=== PATIENT | female | born 1970 | race Caucasian/White ===

== ENCOUNTER → 2016-11-15 | Outpatient (CLI) | payer BC ==
[2016-11-15 18:14] LABS: ALT 33 U/L (9-52); AST 23 U/L (14-36); Alkaline Phosphatase 61 U/L (38-126); Anion Gap 11 mmol/L; Blood Urea Nitrogen 12 mg/dL (7-17); Calcium 9.3 mg/dL (8.4-10.2); Carbon Dioxide 23 mmol/L (22-30); Chloride 107 mmol/L (98-107); Glucose 86 mg/dL (74-99); Non-African American GFR(MDRD) >60 (>60 ml/min/1.73 sqM); Potassium 4.5 mmol/L (3.5-5.1); Sodium 141 mmol/L (137-145); Total Bilirubin 0.3 mg/dL (0.2-1.3); Total Protein 6.7 g/dL (6.3-8.2)
[2016-11-15 19:34] LABS: Erythrocyte Sedimentation Rate 15 mm/hr (0-20)
[2016-11-15 19:57] LABS: Anisocytosis Slight; Basophils % (A) 0 %; CHCM 31.3; Eosinophils % (A) 1 %; HCT 30.9 % (34.0-46.0); HGB 9.8 gm/dL (11.4-16.0); Hypochromasia Slight; Luc % (Auto) 3; Lymphocytes # (A) 0.2 k/uL (1.0-4.8); Lymphocytes % (A) 5 %; MCH 27.6 pg (25.0-35.0); MCHC 31.9 g/dL (31.0-37.0); MCV 86.6 fL (80.0-100.0); Mean Platelet Volume 7.2; Monocytes # (A) 0.4 k/uL (0-1.0); Monocytes % (A) 12 %; Neutrophils # (A) 2.4 k/uL (1.3-7.7); Neutrophils % (A) 78 %; RBC 3.57 m/uL (3.80-5.40); RDW 16.2 % (11.5-15.5); WBC (Perox) 2.93
[2016-11-16 01:32] LABS: ANA w/Reflex to Titer NEGATIVE (NEGATIVE)
== END | disposition home or self-care (01) ==
LOC: LABWHC1 17:16
PROVIDERS: ATTEND Psychiatry & Neurology Neurology
DX: E55.9 Vitamin D deficiency, unspecified (principal); G35 Multiple sclerosis
CPT/HCPCS: 36415; 80053; 82306; 85025; 85652; 86038

== ENCOUNTER → 2017-03-09 | Outpatient (CLI) | payer OTHER ==
--- NOTE | 2017-03-09 15:54 | XR ---
EXAMINATION TYPE: XR shoulder complete LT DATE OF EXAM: 03/09/2017 CLINICAL HISTORY: Pain after fall injury one week ago. TECHNIQUE: Three views of the left shoulder are obtained. COMPARISON: None. FINDINGS: There is no acute fracture/dislocation evident in the left shoulder. The glenohumeral jodi nt spaces appear within normal limits. Some narrowing acromioclavicular joint is seen. There is sligh t superior displacement of inferior margin distal clavicle relative to acromion. The visualized ribs are intact and unremarkable. IMPRESSION: There is no acute fracture in the left shoulder. Cannot rule out left acromioclavicular joint subluxation or injury. Correlate clinically.
--- NOTE | 2017-03-09 15:56 | XR ---
EXAMINATION TYPE: XR thoracic spine complete DATE OF EXAM: 03/09/2017 CLINICAL HISTORY: Injury one week ago with mid back pain. TECHNIQUE: Frontal, lateral, and swimmer's view of thoracic spine are obtained. COMPARISON: None. FINDINGS: Osseous structures are demineralized. Thoracic spine show scoliotic curvature upper to mid thoracic spine alignment without evidence of acute fracture or dislocation. Vertebral body heights a nd disc space heights are preserved. Visualized ribs are unremarkable. IMPRESSION: No acute fracture or dislocation is seen in the thoracic spine.
== END | disposition home or self-care (01) ==
LOC: RADXRMAIN 15:34
PROVIDERS: ATTEND Emergency Medicine
DX: S43.492A Other sprain of left shoulder joint, initial encounter (principal); S23.3XXA Sprain of ligaments of thoracic spine, initial encounter
CPT/HCPCS: 72072

== ENCOUNTER → 2017-08-11 | Outpatient (CLI) | payer BC ==
[2017-08-11 17:38] LABS: Basophils % (A) 0 %; Eosinophils % (A) 1 %; HCT 36.2 % (34.0-46.0); Lymphocytes # (A) 0.1 k/uL (1.0-4.8); MCH 31.2 pg (25.0-35.0); MCHC 33.2 g/dL (31.0-37.0); Mean Platelet Volume 7.2; Monocytes # (A) 0.3 k/uL (0-1.0); Monocytes % (A) 14 %; Neutrophils # (A) 1.8 k/uL (1.3-7.7); Neutrophils % (A) 74 %; Platelet Count 292 k/uL (150-450); RBC 3.85 m/uL (3.80-5.40)
[2017-08-11 18:04] LABS: Lymphocytes % (A) 6 %; WBC 2.4 k/uL (3.8-10.6)
== END | disposition home or self-care (01) ==
LOC: LABWHC1 17:06
PROVIDERS: ATTEND Obstetrics & Gynecology
DX: Z01.818 Encounter for other preprocedural examination (principal)
CPT/HCPCS: 36415; 85025

== ENCOUNTER 2017-08-16 06:25 | Day surgery (SDC) | payer BC, OTHER ==
[2017-08-15 14:15] VITALS: BMI 21.9
--- NOTE | 2017-08-15 16:22 | P.HPOB ---
History of Present Illness H&P Date: 08/15/17 Chief Complaint: Menorrhagia with irregular cycle This is a 47-year-old female, 3, para 2, who presents for dilatation and curettage with hysteroscopy and Novasure endometrial ablation due to heavy irregular menses. They have been worsening over the last 2 years. Her menses are 21-28 days apart and last 6-7 days with cramping and large clots. Has to change tampon and pad every couple hours. Her pelvic US showed uterus 7.7 x 4.4 x 4.1 cm with anterior fibroid measuring 1.2 cm. Endometrium was 5 mm. Both ovaries appeared normal. OB Hx: . History of 2 vaginal deliveries and 1 miscarriage. Escrow Processor Hx: No hx STDs. Currently using condoms for control. Social Hx: . Teacher. Review of Systems Constitutional: Reports night sweats (before menses), Denies chills, Denies fever Eyes: denies blurred vision, denies pain Ears, nose, mouth and throat: Denies headache, Denies sore throat Cardiovascular: Denies chest pain, Denies shortness of breath Respiratory: Denies cough Gastrointestinal: Denies abdominal pain, Denies diarrhea, Denies nausea, Denies vomiting Genitourinary: Reports dysmenorrhea, Reports menorrhagia, Reports stress incontinence, Denies dysuria, Denies hematuria Menstruation: Reports menses variable, Reports period heavy Musculoskeletal: Denies myalgias Integumentary: Denies pruritus, Denies rash Neurological: Denies numbness, Denies weakness Psychiatric: Denies anxiety, Denies depression Endocrine: Denies fatigue, Denies weight change Past Medical History Past Medical History: No Reported History Additional Past Medical History / Comment(s): Menorrhagia History of Any Multi-Drug Resistant Organisms: None Reported Additional Past Surgical History / Comment(s): D&C Past Anesthesia/Blood Transfusion Reactions: No Reported Reaction Past Psychological History: No Psychological Hx Reported Smoking Status: Never smoker Past Alcohol Use History: Occasional Past Drug Use History: None Reported - Past Family History Mother Additional Family Medical History / Comment(s): Osteoporosis Father Family Medical History: Hyperlipidemia, Hypertension Medications and Allergies Home Medications Medication Instructions Recorded Confirmed Type No Known Home Medications [No 08/15/17 08/15/17 History Known Home Medications] Allergies Allergy/AdvReac Type Severity Reaction Status Date / Time No Known Allergies Allergy Verified 08/15/17 14:10 Exam Osteopathic Statement: *. No significant issues noted on an osteopathic structural exam other than those noted in the History and Physical/Consult. - Vital Signs Vital signs: Intake and Output 08/15/17 08/15/17 08/15/17 06:59 14:59 22:59 Other: Weight 58.06 kg HEENT: within normal limits Heart: regular rate and rhythm Lungs: clear to ausculation bilaterally Heart: regular rate and rhythm Abdomen: soft, non-tender Pelvic: uterus anteverted, non-tender, slightly nodular, with no adnexal masses or tenderness Extremities: neg Isis's Assessment and Plan (1) Menorrhagia with irregular cycle Status: Acute Code(s): N92.1 - EXCESSIVE AND FREQUENT MENSTRUATION WITH IRREGULAR CYCLE SNOMED Code(s): 363614757 Plan: Proceed with dilatation and curettage with hysteroscopy and Novasure endometrial ablation. I have discussed the risks, benefits, and alternative therapies for the above- mentioned procedure and for both sedation/anesthesia as well as necessary blood products administration, if indicated, as they pertain to this patient. The patient has indicated her understanding and acceptance of the risks and procedures discussed.
[~2017-08-16 06:25] MED LIST: DEXAMETHASONE SOD PHOSPHATE 10 MG/ML 1 ML VIAL IV ONE; LACTATED RINGERS 1,000 ML IV SCH; MIDAZOLAM 2 MG/2 ML VIAL IV PRN; ONDANSETRON ODT 4 MG TAB PO ONE; Pre Op ABX Message 1 EACH MISC MISCELLANE ONE; SCOPOLAMINE 1.5MG/72HR PATCH TRANSDERM ONE
[2017-08-16] MEDS ORDERED: LIDOCAINE 1% 20 ML VIAL (10MG/ML) FOR IV START INTRADERMA ONE (06:50)
[2017-08-16] MEDS ORDERED: ONDANSETRON 4 MG/2 ML VIAL IVP ONE (07:00)
[2017-08-16] MEDS ORDERED: fentaNYL (PF) 50 MCG/ML 2 ML AMP ONE (07:28)
[2017-08-16] MEDS ORDERED: SUCCINYLCHOLINE CHLORIDE 100 MG/5 ML SYR IV ONE (07:28)
[2017-08-16] MEDS ORDERED: PROPOFOL 10 MG/ML 20 ML VIAL IV ONE (07:28)
[2017-08-16] MEDS ORDERED: KETOROLAC 30 MG/ML 1 ML VIAL ONE (07:28)
[2017-08-16] MEDS ORDERED: NEOSTIGMINE 1 MG/ML 10 ML VIAL ONE (07:28)
[2017-08-16] MEDS ORDERED: GLYCOPYRROLATE 0.2 MG/ML 2 ML VIAL ONE (07:28)
[2017-08-16] MEDS ORDERED: ROCURONIUM BROMIDE 10 MG/ML 10 ML VIAL IV ONE (07:28)
[2017-08-16] MEDS ORDERED: LIDOCAINE 1% INJ 10MG/ML (20 ML MDV) ONE (07:28)
[2017-08-16] MEDS ORDERED: MIDAZOLAM 2 MG/2 ML VIAL ONE (07:28)
[2017-08-16] MEDS ORDERED: LACTATED RINGERS 1,000 ML IV ONE (08:02)
[2017-08-16] MEDS ORDERED: BUPIVACAINE (PF) 0.25% 30 ML VIAL SQ ONE ×2 (08:02)
--- NOTE | 2017-08-16 08:28 | P.OP ---
Date of Procedure: 08/16/17 Preoperative Diagnosis: Menorrhagia with irregular cycle Family planning Postoperative Diagnosis: Same Procedure(s) Performed: Dilation and curettage with hysteroscopy and NovaSure endometrial ablation Laparoscopic bilateral tubal ligation via fulguration Anesthesia: SUKH Surgeon: Fannie Bruno Estimated Blood Loss (ml): 20 Pathology: other (Endometrial curettings) Condition: stable Disposition: same day Indications for Procedure: This is a 47-year-old female who is scheduled to undergo a dilation and curettage with hysteroscopy and NovaSure endometrial ablation for menorrhagia with irregular cycle and laparoscopic bilateral tubal ligation via fulguration for family planning. Operative Findings: Uterus is mid position and sounded to 9 cm. Cervix is sounded to 4 cm. Upon hysteroscopy a very small endometrial polyp versus small fibroid was noted. Both tubal ostia are visualized. Upon laparoscopy, normal uterus tubes and ovaries are noted. Her gallbladder did appear to be enlarged with possible stones. Description of Procedure: The patient is taken to the operating room. She is placed in the dorsal lithotomy position after general anesthesia was given. She is prepped and draped in the normal sterile fashion. Bladder is drained with a catheter and then removed. Pelvic exam is performed under anesthesia. Uterus is found to be mid position with no adnexal masses. She is placed in slight Trendelenburg position. A right angle retractor is used to visualize the cervix. The anterior lip of the cervix is grasped with a single-tooth tenaculum. Cervix is sounded to 4 cm. Uterus is sounded to 9 cm. Cervix is gently dilated with Kelly dilators until a hysteroscope could be passed. Hysteroscopy is performed using normal saline. The above noted findings are noted. Next a polyp forceps is introduced. And a minimal amount of tissue was obtained. Next medium-sized size sharp curette was placed. A moderate amount of endometrial curettings were obtained. Next NovaSure array was inserted into the endometrial cavity. Length was set at 5 cm and width was determined to be 4.6 cm. Next cavity assessment was completed and passed on the first try. Next NovaSure array was fired at 127 W for 96 seconds. Next the array was removed, inspected and then discarded. Next the hysteroscope was reinserted. Uniform charring was noted. Pictures were taken. Hysteroscope was removed. A kroner uterine manipulator was then inserted into the cervix and the balloon was inflated. Single-tooth tenaculum was removed from the anterior lip of the cervix. Minimal bleeding was noted. All other instruments removed from the vagina. Next gloves were changed and attention was turned to the abdomen. The infraumbilical fold was grasped in transverse fashion with 2 Allis clamps. A small transverse incision was made with a scalpel. A hemostat was used to carry the incision down to the underlying layer of fascia. A towel clip was placed above the umbilicus for retraction. A 10 mm disposable bladeless trocar was then inserted into the peritoneal cavity under direct visualization. Once inside, pneumoperitoneum was achieved with CO2 gas. The insert was removed and the camera was placed. Intraperitoneal placement was confirmed. No bleeding was noted. Next the patient was placed in Trendelenburg position. A small stab incision was made suprapubically and a 5 mm disposable bladeless trocar was inserted into the peritoneal cavity under direct visualization. Once inside pelvic contents were inspected. Next a bipolar Kleppinger instrument was placed through the inferior trocar and the midportion of each tube was brought away from other structures and completely fulgurated on approximate 2-3 cm segment of each tube. Excellent hemostasis was noted. A picture was taken. Pneumoperitoneum was released after the inferior trocar was removed under direct visualization. The upper trocar was then removed. The fascial incision was closed with 0 Vicryl suture in interrupted [id number] stitch. The skin incisions were then closed with 4-0 Vicryl suture in a subcuticular fashion. Incision sites were then injected with quarter percent Marcaine. Approximately 5 mL were used. Next the kroner uterine manipulator was removed. Minimal bleeding was noted. All sponge and needle counts are correct. The patient is then taken to recovery room in stable condition.
[2017-08-16 08:36] VITALS: TEMP 97.4
[2017-08-16] MEDS: fentaNYL (PF) 50 MCG/ML 2 ML AMP IV PRN ×2 (08:46→08:56)
[2017-08-16 08:48] VITALS: RESP 16
[2017-08-16 10:06] VITALS: BP 136/65; PULSE 64
== END 2017-08-16 10:49 | disposition home or self-care (01) ==
LOC: OR 06:25
PROVIDERS: ATTEND Obstetrics & Gynecology
DX: Z30.2 Encounter for sterilization (principal); N92.0 Excessive and frequent menstruation with regular cycle; N84.0 Polyp of corpus uteri; G35 Multiple sclerosis; Z79.899 Other long term (current) drug therapy
CPT/HCPCS: 88305; 58563; 58670; J2250; J1100; J2710; J2405; J2001; J3010; J1885; J0330; J2704

== ENCOUNTER → 2018-02-09 | Outpatient (CLI) | payer BC ==
--- NOTE | 2018-02-09 07:50 | US ---
EXAMINATION TYPE: US abdomen complete DATE OF EXAM: 02/09/2018 COMPARISON: NONE CLINICAL HISTORY: right upper quadrant pain R10.11. EXAM MEASUREMENTS: Liver Length: 12.3 cm Gallbladder Wall: 0.2 cm CBD: 0.5 cm Spleen: 9.9 cm Right Kidney: 9.1 x 5.0 x 5.4 cm Left Kidney: 10.8 x 5.1 x 5.0 cm Exam somewhat limited due to overlying bowel gas Pancreas: visualized portions wnl Liver: wnl Gallbladder: No stones seen Evidence for sonographic Thomas's sign: No CBD: wnl Spleen: wnl Right Kidney: No hydronephrosis or masses seen Left Kidney: No hydronephrosis or masses seen Upper IVC: wnl Abd Aorta: wnl Kidneys show normal cortical medullary differentiation. There is no ascites. IMPRESSION: No significant abnormalities evident. Some limitations to the exam.
== END ==
LOC: RADUSWWP 07:11
PROVIDERS: ATTEND Physician Assistant
DX: R10.11 Right upper quadrant pain (principal)
CPT/HCPCS: 76700

== ENCOUNTER → 2018-11-06 | Outpatient (CLI) | payer BC ==
--- NOTE | 2018-11-06 20:11 | US ---
EXAMINATION TYPE: US venous doppler duplex LE RT DATE OF EXAM: 11/06/2018 7:45 PM COMPARISON: NONE CLINICAL HISTORY: R60.0 Localized edema,G35 MS,E55.9 Vit D Defiency. Edema right leg. Vit D deficienc y. Discoloration and numbness right leg. SIDE PERFORMED: Right TECHNIQUE: The lower extremity deep venous system is examined utilizing real time linear array sonog cally with graded compression, doppler sonography and color-flow sonography. VESSELS IMAGED: External Iliac Vein (EIV) Common Femoral Vein Deep Femoral Vein Greater Saphenous Vein * Femoral Vein Popliteal Vein Small Saphenous Vein * Proximal Calf Veins (* superficial vessels) Right Leg: No evidence of DVT seen at this time in veins imaged from right prox calf veins to EIV. Impression Negative right leg duplex venous sonogram.
== END | disposition home or self-care (01) ==
LOC: RADUSMAIN 19:18
PROVIDERS: ATTEND Psychiatry & Neurology Neurology
DX: R60.0 Localized edema (principal); G35 Multiple sclerosis; E55.9 Vitamin D deficiency, unspecified

== ENCOUNTER → 2020-09-22 | Outpatient (CLI) | payer BC | END | disposition home or self-care (01) | LOC: LABWHC1 16:21 | PROVIDERS: ATTEND Psychiatry & Neurology Neurology | DX: Z20.822 Contact with and (suspected) exposure to COVID-19 (principal); G35 Multiple sclerosis | CPT/HCPCS: 36415; 86769 ==

== ENCOUNTER → 2021-03-26 | Outpatient (CLI) | payer BC ==
[2021-03-26 23:41] LABS: Basophils # (A) 0.03 X 10*3/uL (0.00-0.10); Basophils % (A) 0.8 %; Eosinophils # (A) 0.03 X 10*3/uL (0.04-0.35); Eosinophils % (A) 0.8 %; HCT 39.9 % (37.2-46.3); HGB 12.7 g/dL (12.0-15.0); Lymphocytes # (A) 0.43 X 10*3/uL (0.90-5.00); MCH 30.7 pg (27.0-32.0); MCHC 31.8 g/dL (32.0-37.0); MCV 96.4 fL (80.0-97.0); Mean Platelet Volume 10.4 fL (9.5-12.2); Monocytes # (A) 0.52 X 10*3/uL (0.20-1.00); Monocytes % (A) 14.5 %; Neutrophils # (A) 2.56 X 10*3/uL (1.80-7.70); Neutrophils % (A) 71.3 %; Platelet Count 255 X 10*3/uL (140-440); RBC 4.14 X 10*6/uL (4.10-5.20); RDW 12.2 % (11.5-14.5); WBC 3.59 X 10*3/uL (4.50-10.00)
[2021-03-27 01:00] LABS: ALT 15 U/L (8-44); AST 21 U/L (13-35)
== END | disposition home or self-care (01) ==
LOC: LABWHC1 16:27
PROVIDERS: ATTEND Psychiatry & Neurology Neurology
DX: G35 Multiple sclerosis (principal)
CPT/HCPCS: 36415; 84450; 84460; 85025; 86769